=== PATIENT | male | born 1960 | race Caucasian/White ===

== ENCOUNTER 2022-01-06 07:16 | Outpatient (REF) | payer OTHER, SELFPAY ==
[2022-01-06 11:26] LABS: MANUAL DIFF FLAG NO
[2022-01-06 11:32] LABS: Basophils Absolute Auto 0.1 X10*3/uL (0.0-0.2); Basophils Percent Auto 0.6 % (0-2); Eosinophils Absolute Auto 0.5 X10*3/uL (0.0-0.4); Eosinophils Percent Auto 4.8 % (0-4); Imm Gran Abs Auto 0.05 X10*3/uL (0.00-0.03); Imm Gran Pct Auto 0.5 % (0.0-0.4); Mean Corpuscular HGB Conc 32.6 g/dl (31.0-36.0); Mean Corpuscular Hemoglobin 30.1 pg (27.0-33.0); Mean Corpuscular Volume 92.4 fL (80.0-98.0); Mean Platelet Volume 11.2 fL (9.4-12.4); Monocytes Absolute Auto 0.7 X10*3/uL (0.1-1.2); Monocytes Percent Auto 6.9 % (2-11); Neutrophils Absolute Auto 5.6 x10*3/uL (2.0-8.3); Neutrophils Percent Auto 57.2 % (45-73); Platelet Count 325 X10*3/uL (160-400); Red Blood Count 4.98 X10*6/uL (4.60-5.80); Red Cell Distribution Width 12.6 % (11.0-16.0); White Blood Count 9.9 X10*3/uL (4.8-10.8)
[2022-01-06 11:48] LABS: Appearance Urine Turbid; Color Urine Yellow; Glucose Urine UA Negative (Negative); Leukocyte Esterase Urine Negative (Negative); Nitrite Urine Negative (Negative); PH 5.5 (5.0-9.0); Urine Blood Negative (Negative); Urine Ketones Negative (Negative); Urine Protein Negative (Neg-Trace)
[2022-01-06 11:51] LABS: Bacteria Urine None Seen (None Seen); Hyaline Casts Urine 0-2 /LPF (0-2); RBC Urine 0-2 /HPF (0-2); Squamous Epithelial Cell Urine 0-2 /HPF (0-2); WBC Urine 0-5 /HPF (0-5)
[2022-01-06 12:14] LABS: PSA,Total (Free>4and<10) 1.23 ng/mL (0.00-4.00)
[2022-01-06 12:16] LABS: Alanine Aminotransferase 15 U/L (0-40); Albumin Level 4.7 g/dL (3.5-5.0); Alkaline Phosphatase 58 U/L (39-117); Anion Gap 14 (12-20); Aspartate Amino Transferase 20 U/L (5-37); Bilirubin Total 0.4 mg/dL (0.0-1.0); Blood Urea Nitrogen 18 mg/dL (9-16); Calcium 9.4 mg/dL (8.4-10.2); Carbon Dioxide 29 mmol/L (22-29); Chloride 104 mmol/L (96-108); Cholesterol 192 mg/dL; Estimated Glomerular Filt Rate > 60; Glucose Fasting 101 mg/dL (60-99); HDL Cholesterol 59 mg/dL; LDL Cholesterol Calculated 109 mg/dl; Potassium 4.5 mmol/L (3.3-5.1); Sodium 142 mmol/L (135-145); Total Protein 7.3 g/dL (6.5-8.0); Triglycerides 120 mg/dL
== END 2022-01-06 07:17 | disposition home or self-care (01) ==
LOC: HO.HMGCLDS 07:16
PROVIDERS: PCP Internal Medicine; Visit Provider Internal Medicine
DX: Z00.00 Encounter for general adult medical examination without abnormal findings (principal); Z12.5 Encounter for screening for malignant neoplasm of prostate
CPT/HCPCS: 36415; 80053; 80061; 81001; 84153; 85025

== ENCOUNTER 2022-12-31 09:39 | Outpatient (AMB) | payer OTHER, SELFPAY ==
[2022-12-31 10:11] VITALS: BP 124/74; PULSE 66; O2SAT 97; BMI 31.3
--- NOTE | 2022-12-31 10:11 | A.OFFPC_ITS ---
Vital Signs 12/31/22 10:11 Height 5 ft 8 in Weight 206 lb BMI 31.3 BP 124/74 Blood Pressure Location Rt brachial Position Sitting Pulse 66 Pulse Source Pulse Oximeter Pulse Oximetry (%) 97 Oxygen Delivery Method Room Air Intake Visit Reasons: Annual pe Intake Note: Pt is here today for PE. Allergies No Known Allergies Allergy (Verified 12/31/22 10:12) Medication List - Last Reconciled 12/31/22 by Effie Franco MD citalopram 20 mg PO DAILY ibuprofen 800 mg PO Q8H Tobacco use date assessed: 12/31/22 Fall risk assessment: No Falls in past year Last assessed Fall Risk: 12/31/22 Dental Screening Dental Screen Date: 12/31/22 Did you have a dental visit in the last 12 months?: Yes Did you have a dental problem in the last 6 months where you did not have access to dental care?: No Was dental information given to patient?: Patient has dentist HPI Annual pe HPI Details Patient presents for physical. PFSH Family History Son Substance use disorder Brother Substance use disorder Father Substance use disorder Liver cancer, Onset Age: 74 Mother Mental health disorder Sister Mental health disorder Maternal Aunt No problems noted. Paternal Aunt Mental health disorder Social History Household Members Other:: , lives alone, on disability, walking daily Housing: House Patient Tobacco Use Status: Never used Tobacco e-Cigarette/Vaping Use: Never Used service: No Current occupational status: unemployed Cognitive needs: No Hearing needs: Yes Vision needs: Yes Questionnaire Thrive Questionnaire Date Thrive assessed: 04/29/22 AUDIT C Alcohol Use Questionnaire (AUDIT-C) 1. How often do you have a drink containing alcohol?: Never 3. How often do you have six or more drinks on one occasion?: Never Total Score: 0 STANLEY-7 AMB Questionnaire STANLEY-7 Date STANLEY - 7 assessed: 04/29/22 Source: Developed by Drs. Bradford Jeffrey, Shantal Ceron, Kev Bledsoe and colleagues, with an educational smitha from [employer]. Review of Systems Const All systems reviewed & are unremarkable except as noted in HPI and below Reports no additional complaints Eyes Reports no additional complaints ENT Reports no additional complaints Card Reports no additional complaints Resp Reports no additional complaints GI Reports no additional complaints Reports no additional complaints Physical exam (Primary Care) Vital Signs: Last Vital Signs Pulse 66 12/31/22 10:11 BP 124/74 12/31/22 10:11 Pulse Ox 97 12/31/22 10:11 Oxygen Delivery Method Room Air 12/31/22 10:11 BMI result Body Mass Index 31.3 Tobacco/Smoking Status: Tobacco use Status Tobacco use date assessed 12/31/22 12/31/22 10:15 Patient Tobacco Use Status Never used Tobacco 12/31/22 10:15 e-Cigarette/Vaping Use Never Used 12/31/22 10:15 Thrive Assessment: Date of Thrive Assessment Date Thrive assessed 04/29/22 12/31/22 10:15 Const General: no acute distress HENMT Head: Yes normal to inspection Ears: hearing grossly normal bilaterally Face and sinus: Yes normal facial exam Throat: Yes posterior oropharynx normal Eyes General: appearance normal, both eyes and all related structures Neck Neck: Yes no lymphadenopathy and Yes supple Resp Effort & Inspection: normal respiratory effort Auscultation: clear to auscultation bilaterally Cardio Rhythm: regular rhythm Heart sounds: S1 normal heart sound present and S2 normal heart sound present GI Inspection: Yes normal to inspection Palpation (GI): Soft to palpation Percussion: Yes normal to percussion Auscultation: normal bowel sounds Assessment and Plan Assessment & Plan (1) Squamous cell skin cancer: Comment: f/u Dr. Alvarado Code(s): C44.92 - Squamous cell carcinoma of skin, unspecified (2) Annual physical exam: Code(s): Z00.00 - Encounter for general adult medical examination without abnormal findings Plan: Well-balanced diet and regular physical activity discussed with the patient (3) Hx of colonoscopy: Comment: last colonoscopy ? 2018 , negative, Q 5 years, FHx of colon polyps : father, brother Code(s): Z98.890 - Other specified postprocedural states Plan: Referred to GI for repeat colonoscopy Orders: Orders Comprehensive [place]. Panel Fast 365 Days Z00.00 - Encounter for general adult medical examination without abnormal findings PSA,Total (Free>4and<10) 365 Days Z00.00 - Encounter for general adult medical examination without abnormal findings Lipid Panel 365 Days Z00.00 - Encounter for general adult medical examination without abnormal findings Complete Blood Count Auto Diff 365 Days Z00.00 - Encounter for general adult medical examination without abnormal findings Referrals Dermatology Referral C44.92 - Squamous cell carcinoma of skin, unspecified Gastroenterology Referral Z00.00 - Encounter for general adult medical examination without abnormal findings Coding Level of Care Code Est Pt Prev Care 40-64y(07258) Diagnoses Squamous cell skin cancer C44.92 Annual physical exam Z00.00 Hx of colonoscopy Z98.890
== END 2022-12-31 10:34 | disposition home or self-care (01) ==
PROVIDERS: Visit Provider Internal Medicine
DX: C44.92 Squamous cell carcinoma of skin, unspecified (principal); Z00.00 Encounter for general adult medical examination without abnormal findings; Z98.890 Other specified postprocedural states
CPT/HCPCS: 99396

== ENCOUNTER 2022-12-31 09:52 | Outpatient (REF) | payer OTHER, SELFPAY ==
[2022-12-31 13:11] LABS: MANUAL DIFF FLAG NO
[2022-12-31 13:27] LABS: Basophils Absolute Auto 0.1 X10*3/uL (0.0-0.2); Basophils Percent Auto 0.8 % (0-2); Eosinophils Absolute Auto 0.3 X10*3/uL (0.0-0.4); Hematocrit 45.4 % (42.0-52.0); Imm Gran Abs Auto 0.03 X10*3/uL (0.00-0.03); Imm Gran Pct Auto 0.4 % (0.0-0.4); Lymphocytes Absolute Auto 2.4 X10*3/uL (1.2-4.9); Lymphocytes Percent Auto 30.5 % (20-40); Mean Corpuscular Hemoglobin 30.1 pg (27.0-33.0); Mean Corpuscular Volume 91.2 fL (80.0-98.0); Mean Platelet Volume 10.9 fL (9.4-12.4); Monocytes Absolute Auto 0.6 X10*3/uL (0.1-1.2); Neutrophils Absolute Auto 4.5 x10*3/uL (2.0-8.3); Neutrophils Percent Auto 56.3 % (45-73); Platelet Count 303 X10*3/uL (160-400); Red Blood Count 4.98 X10*6/uL (4.60-5.80); Red Cell Distribution Width 12.6 % (11.0-16.0)
[2022-12-31 13:49] LABS: Alanine Aminotransferase 15 U/L (0-40); Albumin Level 4.7 g/dL (3.5-5.0); Alkaline Phosphatase 60 U/L (39-117); Anion Gap 11 (12-20); Aspartate Amino Transferase 25 U/L (5-37); Bilirubin Total 0.4 mg/dL (0.0-1.0); Blood Urea Nitrogen 12 mg/dL (9-16); Calcium 9.9 mg/dL (8.4-10.2); Carbon Dioxide 29 mmol/L (22-29); Chloride 104 mmol/L (96-108); Cholesterol 232 mg/dL (<200); Estimated Glomerular Filt Rate > 60; Glucose Fasting 108 mg/dL (60-99); HDL Cholesterol 54 mg/dL (>40); LDL Cholesterol Calculated 159 mg/dL (<100); Potassium 4.1 mmol/L (3.3-5.1); Sodium 140 mmol/L (135-145); Total Protein 7.8 g/dL (6.5-8.0); Triglycerides 96 mg/dL (<150)
[2022-12-31 14:18] LABS: PSA,Total (Free>4and<10) 0.67 ng/mL (0.00-4.00)
== END 2022-12-31 09:53 | disposition home or self-care (01) ==
LOC: HO.HMGCLDS 09:52
PROVIDERS: PCP Internal Medicine; Visit Provider Internal Medicine
DX: Z00.00 Encounter for general adult medical examination without abnormal findings (principal); Z12.5 Encounter for screening for malignant neoplasm of prostate; F41.9 Anxiety disorder, unspecified; R03.0 Elevated blood-pressure reading, without diagnosis of hypertension
CPT/HCPCS: 36415; 80053; 80061; 84153; 85025

== ENCOUNTER 2023-02-17 09:26 | Outpatient (AMB) | payer OTHER, SELFPAY ==
[2023-02-17 09:36] VITALS: BP 172/87; PULSE 84; BMI 31.0
--- NOTE | 2023-02-17 09:36 | A.OFFVIS_ITS ---
Intake Vital Signs 02/17/23 09:36 Height 5 ft 8 in Weight 204 lb 2.369 oz BMI 31.0 BP 172/87 H Blood Pressure Location Rt brachial Position Sitting Pulse 84 Pulse Source Pulse Oximeter Intake Visit Reasons: Colonoscopy Screening Intake Note: Pt presents to the office today for a colonoscopy screening. Pt states he is feeling well and denies any GI concerns at this time. Allergies No Known Allergies Allergy (Verified 02/17/23 09:39) HPI HPI Comments History of Present Illness Details A 62 y/o male family history colon polyps- he has never had polyps- insurance change so needs to reestablish Unsure where last was done about 6 years ago. He is very anxious , had 3 black coffee this morning- BP up-this is pretty typical per his report No YATES, CP, SOB Appetite is good Bowels normal No nausea, vomiting, hematemesis, hematochezia fever chills PFSH Family History Son Substance use disorder Brother Substance use disorder Father Substance use disorder Liver cancer, Onset Age: 74 Mother Mental health disorder Sister Mental health disorder Maternal Aunt No problems noted. Paternal Aunt Mental health disorder Social History Household Members Other:: , lives alone, on disability, walking daily Housing: House Patient Tobacco Use Status: Never used Tobacco e-Cigarette/Vaping Use: Never Used service: No Current occupational status: unemployed Cognitive needs: No Hearing needs: Yes Vision needs: Yes Review of Systems Const All systems reviewed & are unremarkable except as noted in HPI and below Card Denies chest pain and Denies dyspnea Resp Denies dyspnea GI Denies abdominal pain, Denies heartburn, Denies diarrhea and Denies nausea Psych Reports anxiety Physical Exam Vital Signs: Last Vital Signs Pulse 84 02/17/23 09:36 BP 172/87 H 02/17/23 09:36 BMI result Body Mass Index 31.0 Const General: cooperative, healthy appearing, comfortable, anxious and well groomed Orientation/consciousness: patient oriented x3 Limitations: no limitations Eyes Sclerae: sclerae normal Resp Effort & Inspection: normal respiratory effort and able to speak in complete sentences Auscultation: clear to auscultation bilaterally, no crackles, no rales and no rhonchi Cardio Other: Murmur was not appreciated Rate: regular rate Rhythm: regular rhythm Heart sounds: S1 normal heart sound present, S2 normal heart sound present and no murmurs GI Palpation (GI): Soft to palpation and nontender Auscultation: normal bowel sounds Skin General skin exam: no rashes or lesions noted Neuro General: patient oriented x3 Extrem General: Yes full ROM Psych Appearance: grossly normal and well kempt Mental Status: mental status grossly normal Speech and movement: Normal speech and movement present Affect: Anxious affect present Attitude: cooperative Thought process: Normal thought process present Thought content: Normal thought content present Insight: Good insight present (Psych) Judgement: Good judgement present (Psych) Assessment & Plan Assessment & Plan (1) Hx of colonoscopy: Comment: last colonoscopy ? 2018 , negative, >Q 5 years, FHx of colon polyps : father, brother Code(s): Z98.890 - Other specified postprocedural states Plan With polyp surveillance colonoscopy MiraLax Gatorade prep Orders: Orders Colonoscopy - GI Use Only Today Z98.890 - Other specified postprocedural states Medications: New bisacodyl (Dulcolax (bisacodyl)) Day before procedure, prep day Take 4 tablets by mouth upon awakening followed by large glass of water 20 mg (4 x 5 mg) PO ONCE 4 tabs 0RF colonoscopy prep 1 day Z12.11 - Encounter for screening for malignant neoplasm of colon polyethylene glycol 3350 (Miralax) Take as directed by mouth the day before your procedure. 238 grams PO ONCE PRN 238 grams 0RF laxative effect 1 day Patient Instructions: Pleasant somewhat anxious 62-year-old male family history of colon polyps due for polyp surveillance colonoscopy Review of procedure, need for escorted, rare risks, MG prep-literature given Encouraged to call questions or concerns Coding Level of Care Code New Pt Level 3 (61899) Diagnoses Hx of colonoscopy Z98.890 Time Spent (min) 30
== END 2023-02-17 10:29 | disposition home or self-care (01) ==
PROVIDERS: PCP Internal Medicine; Visit Provider Physician Assistant
DX: Z98.890 Other specified postprocedural states (principal)
CPT/HCPCS: 99203

== ENCOUNTER → 2023-02-17 09:26 | Outpatient (BNVA) | payer OTHER, SELFPAY | PROVIDERS: PCP Internal Medicine; Visit Provider Physician Assistant | DX: Z98.890 Other specified postprocedural states (principal) | CPT/HCPCS: 99202 ==

== ENCOUNTER 2023-07-13 11:54 | Day surgery (SDC) | payer MEDICARE, MEDICAID, SELFPAY ==
[2023-07-09 14:13] VITALS: BMI 31.0
[2023-07-13 12:06] VITALS: BP 167/67; PULSE 73; RESP 18; TEMP 36.2; O2SAT 98; BMI 31.2
--- NOTE | 2023-07-13 12:11 | MHC.SHP ---
Pre-Procedural Eval Section A - 24 Hr Update-Section A only Date of Service: 07/13/23 Section B - Complete if H&P > 30 days Chief Complaint: Colon cancer screening, FH of colon polyps Relevant Family History (Specify if Yes): Yes Relevant Social History: None Present Medications: see Short Stay Collaborative assessment Medical History: Significant History (Anxiety, cervical radiculopathy) History of Previous Operations: Relevant previous surgery/procedure and date(s) (History of colonoscopy) Allergies: Allergies Allergy/AdvReac Type Severity Reaction Status Date / Time No Known Allergies Allergy Verified 02/17/23 09:39 Review of Systems Sugical H&P ROS: Negative: Constitution, Cardiovascular, Respiratory and Gastrointestinal Exam Surgical H&P Exam: Normal: Heart, Normal: Lungs, Normal: Extremities and Normal: Abdomen Plan Diagnosis/Plan: Unchanged I have reviewed the history and physical and performed a pertinent physical examination on my patient. No changes have occurred unless specified. Time Spent With Patient Time: Total time managing care of this patient today ____ minutes.
--- NOTE | 2023-07-13 12:15 | HO.ANESPROP2 ---
[facility] Active Problems Active Problems: All Active Problems (Updated 12/31/22 @ 10:31 by Effie Franco MD) Cervical radiculopathy (Acute) Hx of colonoscopy (Acute) Squamous cell skin cancer (Acute) Recovering alcoholic in remission (Acute) Annual physical exam (Acute) Anxiety (Acute) Family History Family History Son Substance use disorder Brother Substance use disorder Father Substance use disorder Liver cancer, Onset Age: 74 Mother Mental health disorder Sister Mental health disorder Maternal Aunt No problems noted. Paternal Aunt Mental health disorder Surgical History History of Problems with Anesthesia: No Social History Social History Household Members Other:: , lives alone, on disability, walking daily Housing: House Patient Tobacco Use Status: Never used Tobacco e-Cigarette/Vaping Use: Never Used Are you DNR?: No Advance Directives: No Advance Directives Information Provided: Yes Nutrition Risks: No Nutritional Risk service: No Current occupational status: unemployed Cognitive needs: No Hearing needs: Yes Vision needs: Yes Meds Allergies Allergy/AdvReac Type Severity Reaction Status Date / Time No Known Allergies Allergy Verified 02/17/23 09:39 Exam Height,Weight and Vital Signs: Height 5 ft 8 in Weight 93.2 kg Last Vital Signs Temp 97.1 F 07/13/23 12:06 Pulse 73 07/13/23 12:06 Resp 18 07/13/23 12:06 BP 167/67 H 07/13/23 12:06 Pulse Ox 98 07/13/23 12:06 O2 Del Method Room Air 07/13/23 12:06 Airway Mallampati Class: III TM Dist: >3cm Neck ROM: Full Loose/Missing/Broken Teeth: No Heart: RRR Lungs: CTA Assessment and Plan Assessment Anesthesia Assessment: Anesthesia Plan Discussed and Chart Reviewed Final Anesthetic Review History of Problems with Anesthesia: No NPO: Yes ASA Class: II Final Preanesthetic Review: Meds/Allgs Chart Reviewed, Consent Obtained/Reviewed and Anes Risks/Benef Reviewed Patient Risk: Low Procedure Risk: Low Anesthetic Plan Anesthetic Plan: MAC: Disposition: Standard PACU
--- NOTE | 2023-07-13 12:18 | W.PM.OPN ---
Operative Note Operative Note Date of Service: 07/13/23 Narrative: COLONOSCOPY TILL CECUM Pre-op diagnosis: Colon cancer screening, Family hx of colon polyps (Dad and brother in their 50's and 60's). Post-op diagnosis:? Diverticulosis, hemorrhoids Endoscopist:? Minerva Olivera MD Anesthesia:?MAC Consent: Indications for the procedure and potential complications of bleeding, perforation, reaction to medications and missed diagnosis were discussed with the patient and informed consent was obtained. Instrument: Olympus CF H 190 L variable stiffness adult colonoscope Monitoring: Vital signs and clinical assessment, intermittent blood pressure monitoring, continuous EKG monitoring, Pulse oximetry and Carbon Dioxide monitoring were done throughout the procedure. Please see anesthesia flowsheet. Colon withdrawl time was 13 minutes. Procedure: The patient was placed in the left lateral decubitis position and pre-procedure medications were administered. After a digital rectal examination of the ano-rectum, the video colonoscope was inserted into the rectum and advanced through the colon to the cecum. The colonoscope was slowly withdrawn in a retrograde panoramic fashion and the colon mucosa was carefully examined including a retroflexed view of the rectum. Findings and interventions are described below. Procedure Difficulty: without difficulty Findings: Terminal Ileum: Not evaluated Cecum: Normal Ascending Colon: Normal Transverse Colon: Normal Descending Colon: Normal Sigmoid Colon: Moderate diverticulosis Rectum: Normal Ano-rectum: Moderate internal hemorrhoids Colon preparation: Good after some irrigation. [place] Bowel Preparation Scale Right colon; 2 Transverse colon: 2 Left colon; 2 (0 = Unprepared colon segment with mucosa not seen due to solid stool that cannot be cleared. 1 = Portion of mucosa of the colon segment seen, but other areas of the colon segment not well seen due to staining, residual stool and/or opaque liquid. 2 = Minor amount of residual staining, small fragments of stool and/or opaque liquid, but mucosa of colon segment seen well. 3 = Entire mucosa of colon segment seen well with no residual staining, small fragments of stool or opaque liquid) Impression and Post Procedure Diagnosis: Colonoscopy Findings: No polyps were detected. Moderate diverticulosis seen in the sigmoid colon Moderate non-bleeding hemorrhoids on retroflexed exam. Plan: Since pt has had one negative colonoscopy in the past and had a 2nd negative colonoscopy today, advise to revert to routine screening with a follow-up colonoscopy in 10 years. Above findings were reviewed with the patient and relevant handouts were given and the discharge area.
[2023-07-13] MEDS: Lactated Ringers 1,000 ML 50 ML IVCONT (12:22)
[2023-07-13 12:53] VITALS: BP 122/63; PULSE 64; RESP 18; TEMP 36.6; O2SAT 99
[2023-07-13 13:08] VITALS: BP 134/72; PULSE 62; RESP 16; TEMP 36.4; O2SAT 98
== END 2023-07-13 13:51 | disposition home or self-care (01) ==
PROVIDERS: PCP Internal Medicine; Visit Provider Internal Medicine Gastroenterology
PROC: 0DJD8ZZ Inspection of Lower Intestinal Tract, Via Natural or Artificial Opening Endoscopic (ICD-10-PCS; CPT 45378; principal; 2023-07-13 13:10)
DX: Z12.11 Encounter for screening for malignant neoplasm of colon (principal); Z83.719 Family history of colon polyps, unspecified; K57.30 Diverticulosis of large intestine without perforation or abscess without bleeding; K64.8 Other hemorrhoids; Z56.0 Unemployment, unspecified
CPT/HCPCS: G0105; J2704

== ENCOUNTER → 2023-07-13 11:54 | Outpatient (BNV) | payer MEDICARE, MEDICAID, SELFPAY | PROVIDERS: PCP Internal Medicine; Visit Provider Internal Medicine Gastroenterology | DX: Z12.11 Encounter for screening for malignant neoplasm of colon (principal); Z83.719 Family history of colon polyps, unspecified; K57.30 Diverticulosis of large intestine without perforation or abscess without bleeding; K64.8 Other hemorrhoids | CPT/HCPCS: G0105 ==

== ENCOUNTER 2024-01-21 08:31 | Outpatient (AMB) | payer MEDICARE, MEDICAID, SELFPAY ==
[2024-01-21 08:37] VITALS: BP 122/66; PULSE 63; O2SAT 98; BMI 29.3
--- NOTE | 2024-01-21 08:37 | A.OFFPC_ITS ---
Vital Signs 01/21/24 08:37 Height 5 ft 8 in Weight 193 lb BMI 29.3 BP 122/66 Blood Pressure Location Rt brachial Position Sitting Pulse 63 Pulse Source Pulse Oximeter Pulse Oximetry (%) 98 Oxygen Delivery Method Room Air Intake Visit Reasons: PE Intake Note: Pt is here today for PE. Allergies No Known Allergies Allergy (Verified 01/21/24 08:40) Medication List - Last Reconciled 01/21/24 by Effie Franco MD citalopram 20 mg PO DAILY Tobacco use date assessed: 01/21/24 Fall risk assessment: No Falls in past year Last assessed Fall Risk: 01/21/24 Dental Screening Dental Screen Date: 01/21/24 Did you have a dental visit in the last 12 months?: Yes Did you have a dental problem in the last 6 months where you did not have access to dental care?: No Was dental information given to patient?: Patient has dentist HPI PE HPI Details Patient presents for physical PFSH Surgical History (Updated 01/21/24 @ 09:30 by Effie Franco MD) No pertinent past surgical history Family History Son Substance use disorder Brother Substance use disorder Father Substance use disorder Liver cancer, Onset Age: 74 Mother Mental health disorder Sister Mental health disorder Maternal Aunt No problems noted. Paternal Aunt Mental health disorder Social History Household Members Other:: , lives alone, on disability, walking daily Housing: House Patient Tobacco Use Status: Never used Tobacco e-Cigarette/Vaping Use: Never Used service: No Current occupational status: unemployed Cognitive needs: No Hearing needs: Yes Vision needs: Yes Questionnaire PHQ-9 Over the last 2 weeks, how often have you been bothered by any of the following problems? 1. Little interest or pleasure in doing things: not at all 2. Feeling down, depressed, or hopeless: not at all 3. Trouble falling or staying asleep, or sleeping too much: not at all 4. Feeling tired or having little energy: not at all 5. Poor appetite or overeating: not at all 6. Feeling bad about yourself - or that you are a failure or have let yourself or your family down: not at all 7. Trouble concentrating on things, such as reading the newspaper or watching television: not at all 8. Moving or speaking so slowly that other people could have noticed. Or the opposite - being so fidgety or restless that you have been moving around a lot more than usual: not at all 9. Thoughts that you would be better off or of hurting yourself in some way: not at all Total score: 0 Depression Screening Interpretation: Negative Depression Screening Done: Yes 87805 - PHQ-9 Billing: Yes Source: Developed by Drs. Bradford Jeffrey, Shantal Ceron, Kev Bledsoe and colleagues, with an educational smitha from [employer]. Thrive Questionnaire Date Thrive assessed: 01/21/24 I am a: Patient What is your living situation today?: I have a steady place to live Within the past 12 months, did the food you bought not last and you didn't have the money to get more?: Never true Within the past 12 months, did you worry whether your food would run out before you got money to buy more?: Never true Do you have trouble paying for medicines?: No Do you have trouble getting transportation to medical appointments?: No Do you have trouble paying your heating and electricity bill?: No Do you have trouble taking care of your child, family member or friend?: No Do you have trouble with day-to-day activities such as bathing, preparing meals, shopping, managing finances, etc.?: No Are you currently unemployed and looking for a job?: No Are you interested in more education?: No Please select the resources that you would like help with: None Currently or been in a relationship where the following occur: No concerns reported THRIVE Score: 0 STANLEY-7 AMB Questionnaire STANLEY-7 Date STANLEY - 7 assessed: 01/21/24 Feeling nervous, anxious, or on edge: 0 = Not at all Not being able to stop or control worryin = Not at all Worrying too much about different things: 0 = Not at all Trouble relaxin = Not at all Being so restless that it is hard to sit still: 0 = Not at all Becoming easily annoyed or irritable: 0 = Not at all Feeling afraid as if something awful might happen: 0 = Not at all Total STANLEY-7 score (0-4 normal; 5-9 mild; 10-14 moderate; 15-21 severe): 0 Source: Developed by Drs. Bradford Jeffrey, Shantal Ceron, Kev Bledsoe and colleagues, with an educational smitha from [employer]. STANLEY-7 Assessment Billing STANLEY-7 Assessment Tool: STANLEY-7 Assessment 60590 Review of Systems Const All systems reviewed & are unremarkable except as noted in HPI and below Eyes Reports no additional complaints ENT Reports no additional complaints Card Reports no additional complaints Resp Reports no additional complaints GI Reports no additional complaints Reports no additional complaints Physical exam (Primary Care) Vital Signs: Last Vital Signs Pulse 63 01/21/24 08:37 BP 122/66 01/21/24 08:37 Pulse Ox 98 01/21/24 08:37 Oxygen Delivery Method Room Air 01/21/24 08:37 BMI result Body Mass Index 29.3 Tobacco/Smoking Status: Tobacco use Status Tobacco use date assessed 01/21/24 01/21/24 08:44 Patient Tobacco Use Status Never used Tobacco 01/21/24 08:44 e-Cigarette/Vaping Use Never Used 01/21/24 08:44 PHQ-9: PHQ-9 Score PHQ-9: Total score 0 01/21/24 08:44 Depression Screening Interpretation: Negative Thrive Assessment: Date of Thrive Assessment Date Thrive assessed 01/21/24 01/21/24 08:44 Currently or been in a relationship where the following occur: No concerns reported Const General: no acute distress HENMT Head: Yes normal to inspection Ears: hearing grossly normal bilaterally General nose exam: Normal external nose present Face and sinus: Yes normal facial exam Mouth: Normal oral and palatal mucosa present Throat: Yes posterior oropharynx normal Eyes General: appearance normal, both eyes and all related structures Neck Neck: Yes no lymphadenopathy and Yes supple Resp Effort & Inspection: normal respiratory effort Auscultation: clear to auscultation bilaterally Cardio Rhythm: regular rhythm Heart sounds: S1 normal heart sound present and S2 normal heart sound present GI Inspection: Yes normal to inspection Palpation (GI): Soft to palpation Percussion: Yes normal to percussion Auscultation: normal bowel sounds Coding Level of Care Code Est Pt Prev Care >65y(90167) Diagnoses Anxiety F41.9 Annual physical exam Z00.00 Recovering alcoholic in remission F10.21 Squamous cell skin cancer C44.92 Hx of colonoscopy Z98.890 Additional Codes STANLEY-7 Assessment Billing - STANLEY-7 Assessment Tool: STANLEY-7 Assessment 27253 ([id number]) Assessment & Plan Assessment & Plan (1) Anxiety: Code(s): F41.9 - Anxiety disorder, unspecified Category: Medical Plan: Continue citalopram (2) Annual physical exam: Code(s): Z00.00 - Encounter for general adult medical examination without abnormal findings Category: Medical Plan: Well-balanced diet regular physical activity discussed with the patient he is up-to-date with colonoscopy, patient will return for fasting blood work (3) Recovering alcoholic in remission: Code(s): F10.21 - Alcohol dependence, in remission Category: Medical Plan: In recovery (4) Squamous cell skin cancer: Comment: f/u Dr. Alvarado Code(s): C44.92 - Squamous cell carcinoma of skin, unspecified Category: Medical Plan: Follow-up with dermatology (5) Hx of colonoscopy: Comment: last colonoscopy ? 2017 , negative, >Q 5 years, FHx of colon polyps : father, brother, negative colonoscopy 07/2023 [facility] [place] Code(s): Z98.890 - Other specified postprocedural states Category: Surgical Plan: Follow-up with GI Orders: Orders Comprehensive [place]. Panel Fast Today F10.21 - Alcohol dependence, in remission, F41.9 - Anxiety disorder, unspecified, Z00.00 - Encounter for general adult medical examination without abnormal findings Lipid Panel Today F10.21 - Alcohol dependence, in remission, F41.9 - Anxiety disorder, unspecified, Z00.00 - Encounter for general adult medical examination without abnormal findings Complete Blood Count Auto Diff Today F10.21 - Alcohol dependence, in remission, F41.9 - Anxiety disorder, unspecified, Z00.00 - Encounter for general adult medical examination without abnormal findings Complete Blood Count Auto Diff 1 Year Z00.00 - Encounter for general adult medical examination without abnormal findings PSA,Total (Free>4and<10) 1 Year Z00.00 - Encounter for general adult medical examination without abnormal findings PSA,Total (Free>4and<10) Today F10.21 - Alcohol dependence, in remission, F41.9 - Anxiety disorder, unspecified, Z00.00 - Encounter for general adult medical examination without abnormal findings UA w Microscopic Today F10.21 - Alcohol dependence, in remission, F41.9 - Anxiety disorder, unspecified, Z00.00 - Encounter for general adult medical examination without abnormal findings Comprehensive [place]. Panel Fast 1 Year Z00.00 - Encounter for general adult medical examination without abnormal findings Lipid Panel 1 Year Z00.00 - Encounter for general adult medical examination without abnormal findings Medications: Refilled citalopram 20 mg PO DAILY 90 tabs 3RF
== END 2024-01-21 09:36 | disposition home or self-care (01) ==
PROVIDERS: PCP Internal Medicine; Visit Provider Internal Medicine
DX: Z00.00 Encounter for general adult medical examination without abnormal findings (principal); F41.9 Anxiety disorder, unspecified; F10.21 Alcohol dependence, in remission; C44.92 Squamous cell carcinoma of skin, unspecified; Z98.890 Other specified postprocedural states

== ENCOUNTER → 2024-01-21 08:31 | Outpatient (BNVA) | payer MEDICARE, MEDICAID, SELFPAY | PROVIDERS: PCP Internal Medicine; Visit Provider Internal Medicine | DX: Z00.00 Encounter for general adult medical examination without abnormal findings (principal); F10.21 Alcohol dependence, in remission; C44.92 Squamous cell carcinoma of skin, unspecified; Z98.890 Other specified postprocedural states | CPT/HCPCS: 96127; 99397 ==

== ENCOUNTER 2025-02-06 08:10 | Outpatient (REF) | payer MEDICARE, MEDICAID, SELFPAY ==
[2025-02-06 10:36] LABS: MANUAL DIFF FLAG NO
[2025-02-06 10:52] LABS: Hematocrit 47.2 % (42.0-52.0); Hemoglobin 15.5 g/dl (14.0-18.0); Imm Gran Abs Auto 0.03 X10*3/uL (0.00-0.03); Imm Gran Pct Auto 0.4 % (0.0-0.4); Lymphocytes Absolute Auto 2.5 X10*3/uL (1.2-4.9); Mean Corpuscular HGB Conc 32.8 g/dl (31.0-36.0); Mean Corpuscular Hemoglobin 29.9 pg (27.0-33.0); Mean Corpuscular Volume 91.1 fL (80.0-98.0); NRBC Abs Auto 0.000 X10*3/uL (0.0-0.012); NRBC Pct Auto 0.0 /100WBC (0.0-0.2); Platelet Count 334 X10*3/uL (160-400); Red Blood Count 5.18 X10*6/uL (4.60-5.80); White Blood Count 7.7 X10*3/uL (4.8-10.8)
[2025-02-06 10:58] LABS: Alanine Aminotransferase 36 U/L (0-40); Albumin Level 4.8 g/dL (3.5-5.0); Alkaline Phosphatase 72 U/L (39-117); Anion Gap 13 (12-20); Aspartate Amino Transferase 42 U/L (5-37); Blood Urea Nitrogen 15 mg/dL (9-16); Calcium 9.5 mg/dL (8.4-10.2); Carbon Dioxide 29 mmol/L (22-29); Chloride 102 mmol/L (96-108); Cholesterol 219 mg/dL (<200); Estimated Glomerular Filt Rate > 60; HDL Cholesterol 58 mg/dL (>40); Potassium 4.7 mmol/L (3.3-5.1); Sodium 139 mmol/L (135-145); Total Protein 7.7 g/dL (6.5-8.0); Triglycerides 109 mg/dL (<150)
[2025-02-06 11:17] LABS: PSA,Total (Free>4and<10) 0.73 ng/mL (0.00-4.00)
== END 2025-02-06 08:11 | disposition home or self-care (01) ==
LOC: HO.HMGCLDS 08:10
PROVIDERS: PCP Internal Medicine; Visit Provider Internal Medicine
DX: Z00.00 Encounter for general adult medical examination without abnormal findings (principal); Z12.5 Encounter for screening for malignant neoplasm of prostate; Z13.6 Encounter for screening for cardiovascular disorders
CPT/HCPCS: 36415; 80053; 80061; 84153; 85025

== ENCOUNTER 2025-02-13 13:00 | Outpatient (AMB) | payer MEDICARE, MEDICAID, SELFPAY ==
[2025-02-13 13:52] VITALS: BP 140/90; PULSE 84; RESP 17; TEMP 36.7; O2SAT 96; BMI 32.7
--- NOTE | 2025-02-13 13:52 | A.OFFPC_ITS ---
Vital Signs 02/13/25 13:52 Height 5 ft 8 in Weight 215 lb BMI 32.7 BP 140/90 H Blood Pressure Location Rt brachial Position Sitting Respiration 17 Pulse 84 Pulse Source Pulse Oximeter Temp 98.0 F Temp Source Oral Pulse Oximetry (%) 96 Oxygen Delivery Method Room Air Intake Visit Reasons: Annual Physical Intake Note: Pt is here today for PE. Allergies No Known Allergies Allergy (Verified 02/13/25 13:53) Medication List - Last Reconciled 02/13/25 by Effie Franco MD citalopram 20 mg PO DAILY Tobacco use date assessed: 02/13/25 Fall risk assessment: No Falls in past year Last assessed Fall Risk: 02/13/25 Dental Screening Dental Screen Date: 02/13/25 Did you have a dental visit in the last 12 months?: Yes Did you have a dental problem in the last 6 months where you did not have access to dental care?: No Was dental information given to patient?: Patient has dentist HPI Annual Physical HPI Details Pt presents for PE. He reports elevated blood pressure at home up to 140/90. Patient has been modifying his diet trying to increase physical activ ity and lose weight. Chronic anxiety and depression is stable on citalopram [facility] Medical History (Updated 02/13/25 @ 19:16 by Effie Franco MD) Annual physical exam Squamous cell skin cancer Recovering alcoholic in remission Anxiety HTN (hypertension) Surgical History (Updated 02/13/25 @ 18:59 by Effie Franco MD) Hx of colonoscopy No pertinent past surgical history Family History Son Substance use disorder Brother Substance use disorder Father Substance use disorder Liver cancer, Onset Age: 74 Mother Mental health disorder Sister Mental health disorder Maternal Aunt No problems noted. Paternal Aunt Mental health disorder Social History Household Members Other:: , lives alone, on disability, walking daily Housing: House Patient Tobacco Use Status: Never used Tobacco e-Cigarette/Vaping Use: Never Used service: No Current occupational status: unemployed Cognitive needs: No Hearing needs: Yes Vision needs: Yes Questionnaire PHQ-9 Over the last 2 weeks, how often have you been bothered by any of the following problems? 1. Little interest or pleasure in doing things: not at all 2. Feeling down, depressed, or hopeless: not at all 3. Trouble falling or staying asleep, or sleeping too much: not at all 4. Feeling tired or having little energy: not at all 5. Poor appetite or overeating: not at all 6. Feeling bad about yourself - or that you are a failure or have let yourself or your family down: not at all 7. Trouble concentrating on things, such as reading the newspaper or watching television: not at all 8. Moving or speaking so slowly that other people could have noticed. Or the opposite - being so fidgety or restless that you have been moving around a lot more than usual: not at all 9. Thoughts that you would be better off or of hurting yourself in some way: not at all Total score: 0 Depression Screening Interpretation: Negative Depression Screening Done: Yes 83053 - PHQ-9 Billing: Yes Source: Developed by Drs. Bradford Jeffrey, Shantal Ceron, Kev Bledsoe and colleagues, with an educational smitha from [employer]. Thrive Questionnaire Date Thrive assessed: 02/13/25 I am a: Patient What is your living situation today?: I have a steady place to live Within the past 12 months, did the food you bought not last and you didn't have the money to get more?: Never true Within the past 12 months, did you worry whether your food would run out before you got money to buy more?: Never true Do you have trouble paying for medicines?: No Do you have trouble getting transportation to medical appointments?: No Do you have trouble paying your heating and electricity bill?: No Do you have trouble taking care of your child, family member or friend?: No Do you have trouble with day-to-day activities such as bathing, preparing meals, shopping, managing finances, etc.?: No Are you currently unemployed and looking for a job?: No Are you interested in more education?: No Please select the resources that you would like help with: None Currently or been in a relationship where the following occur: No concerns reported THRIVE Score: 0 AUDIT C Alcohol Use Questionnaire (AUDIT-C) 1. How often do you have a drink containing alcohol?: Never 3. How often do you have six or more drinks on one occasion?: Never Total Score: 0 STANLEY-7 AMB Questionnaire STANLEY-7 Date STANLEY - 7 assessed: 02/13/25 Feeling nervous, anxious, or on edge: 1 = Several days Not being able to stop or control worryin = Not at all Worrying too much about different things: 1 = Several days Trouble relaxin = Not at all Being so restless that it is hard to sit still: 0 = Not at all Becoming easily annoyed or irritable: 0 = Not at all Feeling afraid as if something awful might happen: 0 = Not at all Total STANLEY-7 score (0-4 normal; 5-9 mild; 10-14 moderate; 15-21 severe): 2 Source: Developed by Drs. Bradford Jeffrey, Shantal Ceron, Kev Bledsoe and colleagues, with an educational smitha from [employer]. STANLEY-7 Assessment Billing STANLEY-7 Assessment Tool: STANLEY-7 Assessment 22397 Review of Systems Const All systems reviewed & are unremarkable except as noted in HPI and below Eyes Reports no additional complaints ENT Reports no additional complaints Card Reports no additional complaints Resp Reports no additional complaints GI Reports no additional complaints Reports no additional complaints Musc Reports no additional complaints Physical exam (Primary Care) Vital Signs: Last Vital Signs Temp 98.0 F 02/13/25 13:52 Pulse 84 02/13/25 13:52 Resp 17 02/13/25 13:52 Pulse Ox 96 02/13/25 13:52 Oxygen Delivery Method Room Air 02/13/25 13:52 BMI result Body Mass Index 32.7 Tobacco/Smoking Status: Tobacco use Status Tobacco use date assessed 02/13/25 02/13/25 13:57 Patient Tobacco Use Status Never used Tobacco 02/13/25 13:57 e-Cigarette/Vaping Use Never Used 02/13/25 13:57 PHQ-9: PHQ-9 Score PHQ-9: Total score 0 02/13/25 14:20 Depression Screening Interpretation: Negative Thrive Assessment: Date of Thrive Assessment Date Thrive assessed 02/13/25 02/13/25 13:57 Currently or been in a relationship where the following occur: No concerns reported Const General: no acute distress HENMT Head: Yes normal to inspection Ears: hearing grossly normal bilaterally Face and sinus: Yes normal facial exam Throat: Yes posterior oropharynx normal Eyes General: appearance normal, both eyes and all related structures Neck Neck: Yes no lymphadenopathy and Yes supple Resp Effort & Inspection: normal respiratory effort Auscultation: clear to auscultation bilaterally Cardio Rhythm: regular rhythm Heart sounds: S1 normal heart sound present and S2 normal heart sound present GI Inspection: Yes normal to inspection Palpation (GI): Soft to palpation Percussion: Yes normal to percussion Auscultation: normal bowel sounds Coding Level of Care Code Est Pt Prev Care >65y(12220) Diagnoses Anxiety F41.9 Annual physical exam Z00.00 HTN (hypertension) I10 Hyperlipidemia E78.5 Additional Codes STANLEY-7 Assessment Billing - STANLEY-7 Assessment Tool: STANLEY-7 Assessment 48630 ([id number]) PHQ-9 - 31048 - PHQ-9 Billing: Yes ([id number]) Assessment & Plan Assessment & Plan (1) Anxiety: Code(s): F41.9 - Anxiety disorder, unspecified Category: Medical Plan: cont Citalopram (2) Annual physical exam: Code(s): Z00.00 - Encounter for general adult medical examination without abnormal findings Category: Medical Plan: Well-balanced diet regular physical activity discussed with the patient. He is up-to-date with colonoscopy (3) HTN (hypertension): Code(s): I10 - Essential (primary) hypertension Category: Medical Plan: Low-sodium diet regular physical activity weight loss discussed with the patient. Valsartan 80 mg daily will be started. Patient will follow-up in 1 month BMP will be checked in 2 weeks (4) Hyperlipidemia: Code(s): E78.5 - Hyperlipidemia, unspecified Category: Medical Plan: Low-cholesterol diet regular physical activity discussed with the patient Orders: Orders Basic Metabolic Panel 2 Weeks I10 - Essential (primary) hypertension Medications: New valsartan 80 mg PO DAILY 90 tabs 0RF
== END 2025-02-13 14:26 | disposition home or self-care (01) ==
LOC: HO.HMCC 13:01
PROVIDERS: PCP Internal Medicine; Visit Provider Internal Medicine
DX: Z00.00 Encounter for general adult medical examination without abnormal findings (principal); F41.9 Anxiety disorder, unspecified; I10 Essential (primary) hypertension; E78.5 Hyperlipidemia, unspecified

== ENCOUNTER → 2025-02-13 13:00 | Outpatient (BNVA) | payer MEDICARE, MEDICAID, SELFPAY | PROVIDERS: PCP Internal Medicine; Visit Provider Internal Medicine | DX: Z00.00 Encounter for general adult medical examination without abnormal findings (principal); I10 Essential (primary) hypertension; F41.9 Anxiety disorder, unspecified; E78.5 Hyperlipidemia, unspecified; Z13.31 Encounter for screening for depression; Z13.39 Encounter for screening examination for other mental health and behavioral disorders | CPT/HCPCS: 96127; 99397 ==

== ENCOUNTER 2025-03-01 09:00 | Outpatient (REF) | payer MEDICARE, MEDICAID, SELFPAY ==
[2025-03-01 10:38] LABS: Anion Gap 13 (12-20); Blood Urea Nitrogen 17 mg/dL (9-16); Calcium 9.5 mg/dL (8.4-10.2); Carbon Dioxide 27 mmol/L (22-29); Chloride 105 mmol/L (96-108); Estimated Glomerular Filt Rate > 60; Potassium 4.2 mmol/L (3.3-5.1); Sodium 141 mmol/L (135-145)
== END 2025-03-01 09:01 | disposition home or self-care (01) ==
LOC: HO.HMGCLDS 09:00
PROVIDERS: PCP Internal Medicine; Visit Provider Internal Medicine
DX: I10 Essential (primary) hypertension (principal)
CPT/HCPCS: 36415; 80048

== ENCOUNTER 2025-03-22 10:35 | Outpatient (AMB) | payer MEDICARE, MEDICAID, SELFPAY ==
[2025-03-22 10:38] VITALS: BP 136/74; PULSE 75; RESP 17; O2SAT 94; BMI 33.1
--- NOTE | 2025-03-22 10:38 | MHC.PC.OV ---
Vital Signs 03/22/25 10:38 Height 5 ft 8 in Weight 218 lb BMI 33.1 BP 136/74 Blood Pressure Location Lt brachial Position Sitting Respiration 17 Pulse 75 Pulse Source Pulse Oximeter Pulse Oximetry (%) 94 Oxygen Delivery Method Room Air Intake Visit Reasons: 1 month f/up Intake Note: Pt is here today for 1 month follow up visit on BP. Allergies No Known Allergies Allergy (Verified 03/22/25 11:10) Medication List - Last Reconciled 03/22/25 by Effie Franco MD citalopram 20 mg PO DAILY valsartan 80 mg PO DAILY Tobacco use date assessed: 03/22/25 Fall risk assessment: No Falls in past year Last assessed Fall Risk: 03/22/25 Dental Screening Dental Screen Date: 02/13/25 HPI 1 month f/up HPI Details Patient presents for the follow-up on hypertension. He has been tolerating valsartan, exercising regularly and follow low-sodium diet. [facility] Medical History (Updated 02/13/25 @ 19:16 by Effie Franco MD) Annual physical exam Squamous cell skin cancer Recovering alcoholic in remission Anxiety HTN (hypertension) Surgical History (Updated 02/13/25 @ 18:59 by Effie Franco MD) Hx of colonoscopy No pertinent past surgical history Family History Son Substance use disorder Brother Substance use disorder Father Substance use disorder Liver cancer, Onset Age: 74 Mother Mental health disorder Sister Mental health disorder Maternal Aunt No problems noted. Paternal Aunt Mental health disorder Social History Household Members Other:: , lives alone, on disability, walking daily Housing: House Patient Tobacco Use Status: Never used Tobacco e-Cigarette/Vaping Use: Never Used service: No Current occupational status: unemployed Cognitive needs: No Hearing needs: Yes Vision needs: Yes Questionnaire Thrive Questionnaire Date Thrive assessed: 02/06/25 I am a: Patient What is your living situation today?: I have a steady place to live Within the past 12 months, did the food you bought not last and you didn't have the money to get more?: Never true Within the past 12 months, did you worry whether your food would run out before you got money to buy more?: Never true Do you have trouble paying for medicines?: No Do you have trouble getting transportation to medical appointments?: No Do you have trouble paying your heating and electricity bill?: No Do you have trouble taking care of your child, family member or friend?: No Do you have trouble with day-to-day activities such as bathing, preparing meals, shopping, managing finances, etc.?: No Are you currently unemployed and looking for a job?: No Are you interested in more education?: No Please select the resources that you would like help with: None Currently or been in a relationship where the following occur: No concerns reported THRIVE Score: 0 STANLEY-7 AMB Questionnaire STANLEY-7 Date STANLEY - 7 assessed: 02/13/25 Source: Developed by Drs. Bradford Jeffrey, Shantal Ceron, Kev Bledsoe and colleagues, with an educational smitha from [employer]. Review of Systems Const All systems reviewed & are unremarkable except as noted in HPI and below Eyes Reports no additional complaints ENT Reports no additional complaints Card Reports no additional complaints Resp Reports no additional complaints GI Reports no additional complaints Reports no additional complaints Physical exam (Primary Care) Vital Signs: Last Vital Signs Pulse 75 03/22/25 10:38 Resp 17 03/22/25 10:38 BP 136/74 03/22/25 10:38 Pulse Ox 94 03/22/25 10:38 Oxygen Delivery Method Room Air 03/22/25 10:38 BMI result Body Mass Index 33.1 Tobacco/Smoking Status: Tobacco use Status Tobacco use date assessed 03/22/25 03/22/25 11:15 Patient Tobacco Use Status Never used Tobacco 03/22/25 10:38 e-Cigarette/Vaping Use Never Used 03/22/25 10:38 Thrive Assessment: Date of Thrive Assessment Date Thrive assessed 02/06/25 03/22/25 10:38 Currently or been in a relationship where the following occur: No concerns reported Const General: no acute distress HENMT Head: Yes normal to inspection Eyes General: appearance normal, both eyes and all related structures Resp Auscultation: clear to auscultation bilaterally Cardio Rhythm: regular rhythm Heart sounds: S1 normal heart sound present and S2 normal heart sound present GI Inspection: Yes normal to inspection Palpation (GI): Soft to palpation Percussion: Yes normal to percussion Auscultation: normal bowel sounds Coding Level of Care Code Est Pt Level 4 (37637) Diagnoses HTN (hypertension) I10 Hyperlipidemia E78.5 Assessment & Plan Assessment & Plan (1) HTN (hypertension): Code(s): I10 - Essential (primary) hypertension Category: Medical Plan: Continue valsartan low-sodium diet regular physical activity follow-up in 3 months with fasting labs before (2) Hyperlipidemia: Code(s): E78.5 - Hyperlipidemia, unspecified Category: Medical Plan: Low-cholesterol diet regular physical activity discussed with the patient Orders: Orders Comprehensive [place]. Panel Fast 3 Months E78.5 - Hyperlipidemia, unspecified, I10 - Essential (primary) hypertension Lipid Panel 3 Months E78.5 - Hyperlipidemia, unspecified, I10 - Essential (primary) hypertension UA w Microscopic 3 Months I10 - Essential (primary) hypertension Medications: Refilled valsartan 80 mg PO DAILY 90 tabs 3RF
== END 2025-03-22 11:39 | disposition home or self-care (01) ==
LOC: HO.HMCC 10:36
PROVIDERS: PCP Internal Medicine; Visit Provider Internal Medicine
DX: I10 Essential (primary) hypertension (principal); E78.5 Hyperlipidemia, unspecified

== ENCOUNTER → 2025-03-22 10:35 | Outpatient (BNVA) | payer MEDICARE, MEDICAID, SELFPAY | PROVIDERS: PCP Internal Medicine; Visit Provider Internal Medicine | DX: I10 Essential (primary) hypertension (principal); E78.5 Hyperlipidemia, unspecified | CPT/HCPCS: 99212 ==